=== PATIENT | female | born 1995 | race American Indian/Alaskan Native ===

== ENCOUNTER 2020-10-23 14:52 | Emergency (ER) | payer OTHER ==
[2020-10-23 15:23] VITALS: BP 125/78
--- NOTE | 2020-10-23 17:21 | Emergency Department Report ---
ED ENT HPI - General Chief complaint: Dental/Oral Stated complaint: PAIN AND SWELLING BACK Time Seen by Provider: 10/23/20 15:46 Source: patient Mode of arrival: Ambulatory Limitations: No Limitations - History of Present Illness Initial comments: Patient is a 24-year-old female presents emergency room with complaints of left lower dental pain that began 2 to 3 weeks ago. States that her pain has been increasing. She states that she has tried multiple [id number] treatments without much relief. She states that it feels like it is swollen in that region. She states that she cannot get an appointment with a dentist until 10/28/2020. She denies any fever, nausea, vomiting, diarrhea, difficulty swallowing, difficulty breathing, facial swelling. No past medical history. Allergy to amoxicillin she is currently on her menstrual cycle. - Related Data Previous Rx's Medication Instructions Recorded Last Taken Type Ciprofloxacin HCl [Ciprofloxacin 500 mg PO Q12HR #28 tab 11/17/18 Unknown Rx TAB] Hyoscyamine Subl [Levsin Sl 0.125 0.125 mg SL Q6HR PRN #20 tab 11/17/18 Unknown Rx TAB] Ondansetron [Zofran ODT TAB] 8 mg PO Q12HR #14 tab.rapdis 11/17/18 Unknown Rx metroNIDAZOLE [Flagyl] 500 mg PO Q12HR #28 tab 11/17/18 Unknown Rx Chlorhexidine Mouthwash [Peridex] 15 ml MM BID #1 bottle 10/23/20 Unknown Rx Clindamycin [Clindamycin CAP] 300 mg PO TID 7 Days #42 capsule 10/23/20 Unknown Rx Naproxen 375 mg PO BID #20 tablet 10/23/20 Unknown Rx Allergies Allergy/AdvReac Type Severity Reaction Status Date / Time amoxicillin Allergy Hives Verified 11/16/18 23:47 ED Dental HPI - General Chief complaint: Dental/Oral Stated complaint: PAIN AND SWELLING BACK Time Seen by Provider: 10/23/20 15:46 Source: patient Mode of arrival: Ambulatory Limitations: No Limitations - Related Data Previous Rx's Medication Instructions Recorded Last Taken Type Ciprofloxacin HCl [Ciprofloxacin 500 mg PO Q12HR #28 tab 11/17/18 Unknown Rx TAB] Hyoscyamine Subl [Levsin Sl 0.125 0.125 mg SL Q6HR PRN #20 tab 11/17/18 Unknown Rx TAB] Ondansetron [Zofran ODT TAB] 8 mg PO Q12HR #14 tab.rapdis 11/17/18 Unknown Rx metroNIDAZOLE [Flagyl] 500 mg PO Q12HR #28 tab 11/17/18 Unknown Rx Chlorhexidine Mouthwash [Peridex] 15 ml MM BID #1 bottle 10/23/20 Unknown Rx Clindamycin [Clindamycin CAP] 300 mg PO TID 7 Days #42 capsule 10/23/20 Unknown Rx Naproxen 375 mg PO BID #20 tablet 10/23/20 Unknown Rx Allergies Allergy/AdvReac Type Severity Reaction Status Date / Time amoxicillin Allergy Hives Verified 11/16/18 23:47 ED Review of Systems ROS: Stated complaint: PAIN AND SWELLING BACK Other details as noted in HPI Comment: All other systems reviewed and negative ED Past Medical Hx - Social History Smoking Status: Never Smoker - Medications Home Medications: Home Medications Medication Instructions Recorded Confirmed Last Taken Type Ciprofloxacin HCl [Ciprofloxacin 500 mg PO Q12HR #28 tab 11/17/18 Unknown Rx TAB] Hyoscyamine Subl [Levsin Sl 0.125 0.125 mg SL Q6HR PRN #20 tab 11/17/18 Unknown Rx TAB] Ondansetron [Zofran ODT TAB] 8 mg PO Q12HR #14 tab.rapdis 11/17/18 Unknown Rx metroNIDAZOLE [Flagyl] 500 mg PO Q12HR #28 tab 11/17/18 Unknown Rx Chlorhexidine Mouthwash [Peridex] 15 ml MM BID #1 bottle 10/23/20 Unknown Rx Clindamycin [Clindamycin CAP] 300 mg PO TID 7 Days #42 capsule 10/23/20 Unknown Rx Naproxen 375 mg PO BID #20 tablet 10/23/20 Unknown Rx ED Physical Exam - General Limitations: No Limitations General appearance: alert, in no apparent distress - Head Head exam: Present: atraumatic, normocephalic - Eye Eye exam: Present: normal appearance - ENT ENT exam: Present: mucous membranes moist, other (there is a cracked tooth with a partial hole representing a dental caries present to the left lower back mol ar, there is ttp, no facial edema, no obvious gum edema, uvula is midline, no uvular edema or deviation, no trismus, no tongue elevation, no muffled voice, no submandibular edema) - Respiratory Respiratory exam: Absent: respiratory distress, accessory muscle use - Neurological Exam Neurological exam: Present: alert, oriented X3 - Psychiatric Psychiatric exam: Present: normal affect, normal mood - Skin Skin exam: Present: warm, dry, intact ED Course Vital Signs 10/23/20 15:22 Temperature 98.5 F Pulse Rate 57 L Respiratory 14 Rate Blood Pressure 125/78 [Left] O2 Sat by Pulse 100 Oximetry ED Medical Decision Making - Medical Decision Making Patient is a 24-year-old female presents emergency room with complaints of left lower dental pain that began 2 to 3 weeks ago. States that her pain has been increasing. She states that she has tried multiple [id number] treatments without much relief. She states that it feels like it is swollen in that region. She states that she cannot get an appointment with a dentist until 10/28/2020. She denies any fever, nausea, vomiting, diarrhea, difficulty swallowing, difficulty breathing, facial swelling. No past medical history. Allergy to amoxicillin she is currently on her menstrual cycle. Vitals are stable. On exam:there is a cracked tooth with a partial hole representing a dental caries present to the left lower back molar, there is ttp, no facial edema, no obvious gum edema, uvula is midline, no uvular edema or deviation, no trismus, no tongue elevation, no muffled voice, no submandibular edema. No signs of significant dental abscess, facial cellulitis, facial abscess, or Mukesh's at this time. Patient given prescription for medication. Advised p atient Please use medication as prescribed. May use a dental putty [id number] but please do not swallow. Follow-up with a dentist. it is very important that you follow-up. Return to emergency room for any new or worsening symptoms. Critical care attestation.: If time is entered above; I have spent that time in minutes in the direct care of this critically ill patient, excluding procedure time. ED Disposition Clinical Impression: Dental caries, Dentalgia, Cracked tooth Disposition: - TO HOME OR SELFCARE Is pt being admited?: No Does the pt Need Aspirin: No Condition: Stable Additional Instructions: Please use medication as prescribed. May use a dental putty [id number] but please do not swallow. Follow-up with a dentist. it is very important that you follow-up. Return to emergency room for any new or worsening symptoms. Prescriptions: Clindamycin [Clindamycin CAP] 300 mg PO TID 7 Days #42 capsule Naproxen 375 mg PO BID #20 tablet Chlorhexidine Mouthwash [Peridex] 15 ml MM BID #1 bottle Referrals: a, dentist [Other] - 2-3 Days Time of Disposition: 17:19 Print Language: BELARUSIAN
== END 2020-10-23 17:30 | disposition home or self-care (01) ==
LOC: ED 14:52
DX: K03.81 Cracked tooth (principal); K02.9 Dental caries, unspecified; K08.89 Other specified disorders of teeth and supporting structures; Z79.899 Other long term (current) drug therapy; Z88.0 Allergy status to penicillin
CPT/HCPCS: 99281